=== PATIENT | male | born 1975 ===

== ENCOUNTER 2017-04-10 18:41 | Emergency (ER) | payer OTHER ==
[~2017-04-10] VITALS: Ht 170.2 cm; Wt 79.4 kg
[2017-04-10] MEDS ORDERED: Augmentin 875-1 EACH PO (20:40)
== END 2017-04-10 21:12 | disposition home or self-care (01) ==
LOC: ER 18:41
DX: S62.637A Displaced fracture of distal phalanx of left little finger, initial encounter for closed fracture (principal); S02.32XA Fracture of orbital floor, left side, initial encounter for closed fracture; S60.452A Superficial foreign body of right middle finger, initial encounter; W22.8XXA Striking against or struck by other objects, initial encounter
CPT/HCPCS: 29130; 70486; 73140; 90471; 90714; 99284